=== PATIENT | female | born 1960 | race Caucasian/White ===

== ENCOUNTER 2017-03-03 16:03 | Emergency (ER) | payer OTHER ==
--- NOTE | 2017-03-03 16:17 | Emergency Department Record ---
History of Present Illness - General Chief complaint: Extremity Problem Stated complaint: RT HAND/WRIST PAIN AND SWELLING Time Seen by Provider: 03/03/17 16:12 Source: Patient Mode of Arrival: Ambulatory Limitations: No limitations - History of Present Illness Initial comments: The patient is here due to R wrist pain for 45 minutes. She tripped and fell onto her outstretched R wrist. Now she is having significant pain to the area. She denies any other injuries. MD Complaint: Extremity pain Onset/Timin -: Minutes(s) Location: Right, Hand History of Same: No Radiation: Distal Severity scale (1-10): 5 Quality: Aching Consistency: Constant Improves with: Immobilization Worsens with: Other Associated Symptoms: Denies other symptoms - Related Data Previous Rx's Medication Instructions Recorded Hydrocodone/Acetaminophen [[place] 1 - 2 each PO .EVERY 4-6 HRS PRN 03/03/17 5-325 Tablet] #20 tablet Allergies Allergy/AdvReac Type Severity Reaction Status Date / Time No Known Drug Allergies Allergy Verified 03/03/17 16:12 Travel Screening - Travel/Exposure Within Last 30 Days Have you traveled within the last 30 days?: No Review of Systems Constitutional: Denies: Chills, Fever Past Medical History - SOCIAL HISTORY Smoking Status: Never smoker Alcohol Use: None Drug Use: None - RESPIRATORY Hx Respiratory Disorders: No - CARDIOVASCULAR Hx Cardio Disorders: Yes Hx Hypertension: Yes Comment:: high cholesterol - NEURO Hx Neuro Disorders: No - GI Hx GI Disorders: No - Hx Genitourinary Disorders: No - ENDOCRINE Hx Endocrine Disorders: No - MUSCULOSKELETAL Hx Musculoskeletal Disorders: No - PSYCH Hx Psych Problems: No - HEMATOLOGY/ONCOLOGY Hx Hematology/Oncology Disorders: No Family Medical History Any Significant Family History?: No Physical Exam - General General Appearance: Alert, Oriented x3, Cooperative, No acute distress - Head Head exam: Atraumatic, Normocephalic, Normal inspection - Eye Eye exam: Normal appearance, PERRL - Extremities Extremities exam: Normal capillary refill, Tenderness (There is tenderness diffusely to the dorsal wrist with decreased ROM due to pain.), Other (The R hand is NVI.). negative: Normal inspection (There is mild tenderness to the dorsal wrist area.), Full ROM Course Vital Signs 03/03/17 16:08 Temperature 98.4 F Pulse Rate 59 L Respiratory 20 Rate Blood Pressure 175/96 Pulse Ox 97 - Reevaluation(s) Reevaluation #1: I did discuss the xray findings with the patient and the need for Ortho F/U. 03/03/17 16:37 Medical Decision Making - Data Complexity MDM Data: X-Ray Ordered and/or Reviewed - Radiology Data Radiology results: Report reviewed (R Wrist: Min displaced distal radius fx with possible intra-articular extension.) Disposition Disposition: Discharge Clinical Impression: Radius distal fracture Qualifiers: Encounter type: initial encounter Fracture type: closed Fracture morphology: unspecified fracture morphology Laterality: right Qualified Code(s): S52.501A - Unspecified fracture of the lower end of right radius, initial encounter for closed fracture Disposition: Home, Self-Care Condition: (1) Good Instructions: Wrist Fracture in Adults (ED) Additional Instructions: Please ice and elevate the wrist for 2-3 days and use Tylenol or [place] for pain. Please use the sling at all times. Please follow up with Dr. Winter in the Specialty clinic this week as planned. Return to the ER for any problems. Prescriptions: Hydrocodone/Acetaminophen [[place] 5-325 Tablet] 1 - 2 each PO .EVERY 4-6 HRS PRN #20 tablet PRN Reason: Pain Referrals: [facility] [Provider Group] XAVIER WINTER [DOCTOR OF OSTEOPATH] - Forms: Patient Portal Access Time of Disposition: 16:40 Quality - Quality Measures Quality Measures: N/A - Blood Pressure Screening View Details: Yes Does Patient Have Any of the Following: No Blood Pressure Classification: Hypertensive Reading Systolic Measurement: 182 Diastolic Measurement: 110 Screening for High Blood Pressure: < Pre-Hypertensive BP, F/U Documented > [ [id number]] Pre-Hypertensive Follow-up Interventions: Referral to alternative/primary care provider.
[2017-03-03] MEDS: KETOROLAC 30 MG/ML VIAL IM ONE (16:40)
--- NOTE | 2017-03-04 12:33 | RADIOLOGY REPORT ---
EXAM: RIGHT WRIST, FOUR VIEWS HISTORY: FALL. PAIN AND SWELLING. TECHNIQUE: Four views of the right wrist were obtained. FINDINGS: There is a nondisplaced distal radial fracture with oblique lucency. Suspect that the fracture has an intraarticular component extending into the radial carpal joint. Moderate soft tissue swelling. IMPRESSION: DISTAL RADIAL FRACTURE. NO EVIDENCE FOR DISPLACEMENT THOUGH THERE IS SUGGESTION OF AN INTRAARTICULAR COMPONENT. JOB NUMBER: [id number] [facility]
== END 2017-03-03 17:00 | disposition home or self-care (01) ==
LOC: ER 16:03
DX: S52.501A Unspecified fracture of the lower end of right radius, initial encounter for closed fracture (principal); W01.0XXA Fall on same level from slipping, tripping and stumbling without subsequent striking against object, initial encounter
CPT/HCPCS: 29125; 99283; 96372; 99284; 73110; J1885

== ENCOUNTER → 2018-01-31 | Day surgery (SDC) | payer OTHER ==
[~2018-01-31] MED LIST: LIDOCAINE 2% MDV (20MG/ML) 20ML VIAL IV ONE; PROPOFOL 10 MG/ML VIAL IV ONE
--- NOTE | 2018-02-03 12:50 | Operative Note ---
DATE OF SURGERY: 01/31/2018 SURGEON: Henrik Rodriguez MD OPERATION: COLONOSCOPY. INDICATIONS: This is a 58-year-old female with average risk for colorectal cancer who presented for screening colonoscopy. POSTOPERATIVE DIAGNOSES: 1. Left-sided colonic diverticulosis. 2. A 6 mm sessile rectal polyp that was removed by cold snare. 3. Otherwise normal colon. ANESTHESIA: Sedation is per Anesthesia. Pulse oximetry was monitored throughout the procedure to maintain O2 saturation of 90% or greater. Supplemental oxygen was administered via nasal cannula. Cardiac and vital signs were monitored throughout the duration of the procedure, and they were stable. The procedure of colonoscopy and risks and alternatives of the procedure, including the risk of bleeding and perforation, among others, were explained to the patient who voiced understanding and agreed to have the procedure done. Physical examination was performed, and the patient was found stable for sedation. PROCEDURE: The patient was placed in the left lateral position. Sedation was initiated. A digital rectal exam was performed and showed some mild external hemorrhoids with no palpable rectal masses. An Olympus PCF-180AL colonoscope was then inserted into the rectum under direct visualization. It was advanced to the cecum without difficulty. The ileocecal valve and appendiceal orifice were identified and photographed. The colonic mucosa was carefully examined upon introduction of the colonoscope. There were scattered diverticula noted in the sigmoid and descending colon. The bowel preparation was good. The colonoscope was then withdrawn while carefully examining the colonic mucosal surfaces. No other lesions were noted. In the rectum, retroflexion was performed and a 6 mm sessile polyp was noted and was removed by cold snare. The colonoscope was then withdrawn and the procedure was terminated. The patient tolerated the procedure well without any immediate complications. The patient remained with stable vital signs and was transferred to the recovery room. RECOMMENDATION: The patient is to have a repeat colonoscopy in 5 or 10 years depending on the histology of the polyps. Thank you for allowing me to participate in the care of your patient. CC: MD LUCIUS Acevedo
== END | disposition home or self-care (01) ==
LOC: HOP 09:35
PROVIDERS: ATTEND Internal Medicine Gastroenterology
DX: Z12.11 Encounter for screening for malignant neoplasm of colon (principal); K57.30 Diverticulosis of large intestine without perforation or abscess without bleeding; K62.1 Rectal polyp; I10 Essential (primary) hypertension; E78.00 Pure hypercholesterolemia, unspecified